=== PATIENT | female | born 1950 ===

== ENCOUNTER 2025-07-28 06:46 | Day surgery (SDC) | payer MEDICARE ==
[2025-07-28] MEDS: Lactated Ringers 1,000 ML IV SCH (07:19)
[2025-07-28] MEDS ORDERED: fentaNYL 100 MCG/2 ML SDV ONE (07:28)
[2025-07-28] MEDS ORDERED: Propofol 200 MG/20 ML SDV ONE ×2 (07:28→08:14)
== END 2025-07-28 10:00 | disposition home or self-care (01) ==
LOC: JP.SDS 06:46
PROVIDERS: ATTEND Family Medicine
DX: Z12.11 Encounter for screening for malignant neoplasm of colon (principal); D12.0 Benign neoplasm of cecum; D12.2 Benign neoplasm of ascending colon; D12.3 Benign neoplasm of transverse colon; K62.1 Rectal polyp
CPT/HCPCS: 00811; 45380; 45381; 88305; J2704; J3010; J7120